=== PATIENT | female | born 1945 | race Caucasian/White ===

== ENCOUNTER 2016-06-11 18:17 | Emergency (ER) | payer MEDICARE ==
[2016-06-11] MEDS ORDERED: MECLIZINE HCL 25 MG TABLET PO ONE (19:13)
--- NOTE | 2016-06-11 19:21 | ERNOTE ---
<Jono Smallwood - Last Filed: 06/11/16 20:19> Dizziness ER Record Date of Service: 06/11/16 Presenting Symptoms: vertigo Time Seen by Provider: 06/11/16 19:12 Source: patient Exam Limitations: no limitations Immunizations: IMMUNIZATION HX Immunizations Up to Date Yes History of Influenza Vaccine No Hx Pneumococcal Vaccination Yes Allergies/Adverse Reactions: Allergies Allergy/AdvReac Type Severity Reaction Status Date / Time morphine Allergy Verified 12/26/14 23:10 Sulfa (Sulfonamide Allergy Verified 12/26/14 23:10 Antibiotics) tramadol Allergy Verified 12/26/14 23:10 tramadol HCl [From Ultram] Allergy Verified 12/26/14 23:10 Home Medications: HOME MEDICATIONS Aspirin [Aspirin Chewable] 81 mg PO DAILY 06/13/14 [Last Taken Unknown] Lisinopril/Hydrochlorothiazide [Zestoretic 10-12.5 mg Tablet] 1 tab PO DAILY [Last Taken Unknown] Nitroglycerin 0.4 mg SL [id number] PRN 06/13/14 [Last Taken Unknown] Levothyroxine Sodium [Synthroid] 100 mcg PO DAILY 12/26/14 [Last Taken Unknown] - History of Present Illness Narrative: Pt presents with c/o severe "vertigo" for one week. Pt claims that for several years she has had mild episodes of vertigo, but this is the worst one she has ever had. States she feels imbalance, and nauseated. Worse with laying down, bending over, or rapid movement of her head. Denies any fever, chills, or headache. Denies any muscular weakness. Timing and Duration: sudden onset Severity: max: severe Severity: currently: severe Associated Symptoms: Present: nausea. Absent: headache, weakness, numbness, sweating, light headedness, sense of confusion Sense of movement: Present: vague Decreased ability to stand/walk:: Present: off balance Usually:: Present: walks w/o assistance Modifying Factors - (Improves): Reports: other - siting upright and remaining still. Modifying Factors - (Worsens): Reports: changing position, movement of head, standing position Review of Systems - Review of Systems Constitutional: Present: no symptoms reported EYE: Present: no symptoms reported ENT: Present: no symptoms reported Respiratory: Present: no symptoms reported Cardiology: Present: no symptoms reported Gastrointestinal/Abdominal: Present: See HPI, nausea Genitourinary: Present: no symptoms reported Musculoskeletal: Present: no symptoms reported Skin: Present: no symptoms reported Neurological: Present: See HPI Endocrine: Present: no symptoms reported Hematologic/Lymphatic: Present: no symptoms reported Psych: Present: no symptoms reported All Other Systems: All systems neg except as marked - Patient's Past Medical History Patient History - Medical: GERD, Hypothyroidism Patient History - Cardiac/Respiratory: Coronary Heart Disease, Hypertension, Myocardial Infarction Patient History - Cancer: No Hx of Cancer Patient History - Surgical Procedures: Cardiac stent, D & C, Tubal Ligation, T & A Patient History - Other: None - Social History Living Situations: alone Abuse History: No History of abuse Psych History: No pertinent hx Smoking Status: Current every day smoker Patient requests Smoking Cessation Consult: No Initiate information on Smoking Cessation: No Alcohol Use: rarely Drug Use: none - Immunizations Immunizations Up to Date: Yes Hx Pneumococcal Vaccination: Yes History of Influenza Vaccine: No Physical Exam - Physical Exam General Appearance: Present: wd/wn, alert, no apparent distress Eye Exam: Normal inspection: bilateral, PERRL: bilateral, EOMI: bilateral Ears, Nose, Throat: Present: normal ENT inspection Neck: Present: normal inspection, nontender Respiratory: Present: no respiratory distress, normal breath sounds, no accessory muscle use, chest nontender, lungs clear Cardiovascular/Chest: Present: regular rate, rhythm, no murmur, normal peripheral pulses Gastrointestinal/Abdominal: Present: normal bowel sounds, nontender, nondistended, soft, no organomegaly Extremity Exam: Present: normal inspection, non-tender, normal range of motion Neurological Exam: Present: alert, oriented, normal mood/affect, no motor/ sensory deficits, vegetable sorter II-XII nml as tested Skin Exam: Present: normal color, warm/dry ED Progress - Results and Orders Patient's Lab Results:: I have reviewed the patient's lab results. - Vital Signs Patient's Vital Signs:: I have reviewed the patient's vital signs. Vital Signs: Vital Signs 06/11/16 18:36 Temperature 36.6 C Pulse Rate 80 Respiratory 18 Rate Blood Pressure 139/75 O2 Sat by Pulse 95 Oximetry - EKG EKG: atrial fibrillation - Progress/Reassessment Chief Complaint: Dizziness Progress:: Improved - Transfer of Care Physician Sign Out: Jono Smallwood Brief History: Presents with one week duration of vertigo Receiving Physician: Aniceto Moreno Pending Results: CT/MRI results Expected Disposition: Discharge Departure Clinical Impression: Vertigo - Departure Disposition: Against medical advice Referrals: Og Wilson MD [Primary Care Provider] - <Aniceto Moreno - Last Filed: 06/11/16 21:17> Dizziness ER Record Immunizations: IMMUNIZATION HX Immunizations Up to Date Yes History of Influenza Vaccine No Hx Pneumococcal Vaccination Yes ED Progress - Results and Orders Patient's Lab Results:: I have reviewed the patient's lab results. Results and Orders: Laboratory Tests 06/11/16 06/11/16 19:30 19:30 WBC 8.5 Hgb 15.8 Hct 46.8 Plt Count 277 Sodium 141 Potassium 3.8 Chloride 105 Carbon Dioxide 28.8 Anion Gap 11.0 BUN/Creatinine Ratio 20.3 Random Glucose 108 Calcium 9.1 - Vital Signs Patient's Vital Signs:: I have reviewed the patient's vital signs. Vital Signs: Vital Signs 06/11/16 06/11/16 18:36 20:09 Temperature 36.6 C Pulse Rate 80 75 Respiratory 18 18 Rate Blood Pressure 139/75 112/67 O2 Sat by Pulse 95 94 Oximetry - Progress/Reassessment Progress Note-Subjective: 06/11/16 20:59 I assumed care from Dr. Smallwood at 20:00. I visited the patient and she stated that she did not want a CT scan of her head as Dr. Smallwood had ordered. She stated her reasons as she cannot lay flat and that she is concerned that Medicare will not pay for the CT. I asked her about symptoms and she reported typical BPPV left sided symptoms. I explained BPPV and that the treatment was the Lito maneuver, which I explained in detail. I suggested that I do Lito maneuver on her to try to clear the crystal. She was concerned that she would get dizzy and possibly vomit if that was done. I suggested that this would be the best time to try this as she has just been given medications but that about 50% of people still have dizziness and/or vomiting. I suggested that if she needed surgery for appendicitis she would probably do that despite the pain and other discomforts after surgery because you would take care of the problem. She agreed to allow the Lito. We needed to change her to [facility] room because her room had the bed in a corner and would not allow the maneuver to be done properly. In the time we were waiting for a room to open up (10-15 minutes) the patient and her daughter left the ER without notifying anyone that they were leaving or why.
[2016-06-11] MEDS ORDERED: MECLIZINE HCL 25 MG TABLET ONE (19:33)
[2016-06-11 19:42] LABS: Hematocrit 46.8 % (37.0-47.0); Hemoglobin 15.8 gm/dL (12.5-16.0); Mean Cell Volume 91.4 fl (78-100); Mean Corpuscular Hemoglobin 30.9 pg (27-31); Mean Corpuscular Hgb Conc 33.8 g/dl (32-36); Neutrophil # 4.2 K/mm3 (1.3-6.0); Neutrophil % 49.6 % (42-75.0); Platelet Count 277 K/mm3 (150-450); Red Blood Count 5.12 M/mm3 (4.2-5.4); Red Cell Distribution Width 13.5 % (11.5-14.0); White Blood Count 8.5 K/mm3 (4.0-10.5)
[2016-06-11 19:46] LABS: BUN/Creatinine Ratio 20.3 (9.0-21.6); Calcium * 9.1 mg/dL (7.9-10.9); Carbon Dioxide 28.8 mmol/L (24-32.6); Estimated Creat Clear 50.8; Potassium 3.8 mmol/L (3.4-4.6)
--- OUTSIDE RECORDS SUMMARY | 2016-06-11 19:51 | XMS REPORT | Continuity of Care Document ---
:1945 Author Organization [facility] ([facility]) Address [place] [address] Phone [phone] Care Team Providers Name Role Phone Unavailable Primary Care Provider Unavailable Source Comments This disclosure is being made pursuant to the Care Everywhere program, applicable federal and state laws, and may not contain all informaitonavailable regarding this patient.[facility] ([facility]) Active Allergies and Adverse Reactions Not on File Current Medications Not on file Active Problems Not on file Social History Tobacco Use Types Packs/Day Years Used Date Never Assessed Plan of Care Health Maintenance Due Date Last Done Comments HCV Screening 1945 Hepatitis B Vaccine (1 of 3 - Primary Series) 1945 Tdap Vaccine 1957 Lipid Disorder Screening 1964 Td Vaccine 1964 Mammogram 1986 Colonoscopy 04/16/1996 Zoster Vaccine 2006 Osteoporosis Screening (DXA Bone Density) 2011 Pneumococcal Vaccine (1 of 2 - PCV13) 2011 Influenza Vaccine: Seasonal (#1) 10/30/2015 Results from Last 3 Months Not on file
[2016-06-11 20:09] VITALS: BP 112/67
== END 2016-06-11 20:05 | disposition left against medical advice (07) ==
LOC: ER 18:17
DX: R42 Dizziness and giddiness (principal); Z72.0 Tobacco use; I10 Essential (primary) hypertension